=== PATIENT | male | born 1975 | race Caucasian/White ===

== ENCOUNTER 2020-07-07 11:58 | Emergency (ER) | payer BC ==
--- NOTE | 2020-07-07 12:32 | EDM.PDOC ---
ED HPI GENERAL MEDICAL PROBLEM - General Chief Complaint: Abdominal Pain Stated Complaint: ABD PAIN Time Seen by Provider: 07/07/20 12:32 Source of Information: Reports: Patient, RN Notes Reviewed History Limitations: Reports: No Limitations - History of Present Illness INITIAL COMMENTS - FREE TEXT/NARRATIVE: See hand written document completed during meditec downtime. - Related Data Allergies Allergy/AdvReac Type Severity Reaction Status Date / Time Sulfa (Sulfonamide Allergy Rash Verified 07/07/20 12:22 Antibiotics) Home Meds: Home Meds NK [No Known Home Meds] 07/07/20 [History] Past Medical History HEENT History: Reports: Impaired Vision - Past Surgical History GI Surgical History: Reports: Appendectomy Social & Family History - Tobacco Use Tobacco Use Status *Q: Never Tobacco User - Recreational Drug Use Recreational Drug Use: Yes Recreational Drug Type: Reports: Marijuana/Hashish Other Recreational Drug Type: last had 3 weeks ago ED ROS GENERAL - Review of Systems Review Of Systems: See Below Constitutional: Reports: No Symptoms Free Text/Narrative/Comment: See hand written document completed during meditec downtime. ED EXAM, GI/ABD - Physical Exam Exam: See Below Text/Narrative:: See hand written document completed during meditec downtime. Exam Limited By: No Limitations Course - Vital Signs Last Recorded V/S: Last Vital Signs Temp 38.3 C H 07/07/20 12:33 Pulse 64 07/07/20 15:16 Resp 16 07/07/20 12:33 BP 113/74 07/07/20 15:16 Pulse Ox 99 07/07/20 12:33 - Orders/Labs/Meds Orders: Active Orders 24 hr Category Date Time Status Abdomen Pelvis w Cont [CT] Stat Exams 07/07/20 12:40 Taken Sodium Chloride 0.9% [Normal Saline] 100 ml Med 07/07/20 15:30 Active IV ASDIRECTED Medication Orders Sodium Chloride (Normal Saline) 100 mls @ 3 mls/sec IV ASDIRECTED TOÑITO Last Admin: 07/07/20 15:44 Dose: 3 mls/sec Documented by: YAZAN Labs: Laboratory Tests 07/07/20 07/07/20 07/07/20 Range/Units 12:40 12:40 15:11 Lactic Acid 0.9 (0.4-2.0) mmol/L C-Reactive Protein 14.97 H (0.0-0.3) mg/dL Amylase 38 (25-115) U/L Lipase 90 (73-393) U/L Urine Color Yellow (YELLOW) Urine Appearance Clear (CLEAR) Urine pH 7.0 (5.0-8.0) Ur Specific [place] 1.015 (1.008-1.030) Urine Protein Negative (NEGATIVE) mg/dL Urine Glucose (UA) Negative (NEGATIVE) mg/dL Urine Ketones Trace H (NEGATIVE) mg/dL Urine Occult Blood Negative (NEGATIVE) Urine Nitrite Negative (NEGATIVE) Urine Bilirubin Negative (NEGATIVE) Urine Urobilinogen 0.2 (0.2-1.0) EU/dL Ur Leukocyte Esterase Negative (NEGATIVE) Urine RBC Not seen (0-5) Urine WBC Not seen (0-5) Ur Epithelial Cells Not seen Urine Bacteria Not seen Meds: Medications Generic Name Dose Route Start Last Admin Trade Name Freq PRN Reason Stop Dose Admin Sodium Chloride 100 mls @ 3 mls/sec 07/07/20 15:30 07/07/20 15:44 Normal Saline IV 3 mls/sec ASDIRECTED TOÑITO Administration Discontinued Medications Generic Name Dose Route Start Last Admin Trade Name Freq PRN Reason Stop Dose Admin Iopamidol 130 ml 07/07/20 12:50 07/07/20 15:44 Isovue-300 (61%) IV 07/07/20 12:51 130 ml ONETIME ONE Administration Sodium Chloride 10 ml 07/07/20 15:27 07/07/20 15:44 Saline Flush FLUSH 07/07/20 15:28 10 ml ONETIME ONE Administration - Radiology Interpretation Free Text/Narrative:: CT showed findings consistent with moderate acute diverticulitis involving the mid transverse colon without abscess or free air. Recommend follow up imaging after treatment to ensure complete resolution of the colonic wall thickening, without residual mucosal disease or mass. postoperative changes right lower quadrant consistent with appendectomy. Colonic diverticulitis. Departure - Departure Time of Disposition: 16:09 Disposition: Home, Self-Care 01 Clinical Impression: Abdominal pain, Diverticulitis - Discharge Information Instructions: Diverticulitis, [id number] Referrals: PCP,None [Primary Care Provider] - Forms: ED Department Discharge Additional Instructions: You have been diagnosed with diverticulitis as evidenced by CT scan of abdomen/pelvis with IV contrast. CT showed findings consistent with moderate acute diverticulitis involving the mid transverse colon without abscess or free air. Recommend follow up imaging after treatment to ensure complete resolution of the colonic wall thickening, without residul\al mucosal disease or mass. postoperative changes right lower quadrant consistent with appendectomy. Colonic diverticulitis. Lab work showed:AST 16ALT 23 CRP 14.97 Lactic acid 0.9 Bilirubin 3.3 Amylase 38 Lipase 90 Push waster, full liquid diet as tolerated to stay hydrated. Advance diet as tolerated, avoid dairy and complex carbohydrates until feeling better. Take acetaminophen 1000mg by mouth three times a day as needed for pain/fever. Take ciprofloxacin 500mg by mouth twice a day for 10 days for infection. Take metronidazole 500mg by mouth three times a day for 10 days for infection. Follow up with a primary provider in 3 to 7 days for recheck. Follow up with general surgeon Dr. Dexter in 7 to 10 days for recheck. Report to the emergency room if no improvement in 72 hours. Return for any worsening, issues or concerns. Sepsis Event Note (ED) - Focused Exam Vital Signs: Vital Signs Temp Pulse Resp BP Pulse Ox 07/07/20 15:16 64 113/74 07/07/20 12:33 38.3 C H 130 H 16 117/74 99 - My Orders Last 24 Hours: My Active Orders 07/07/20 12:40 Abdomen Pelvis w Cont [CT] Stat 07/07/20 15:30 Sodium Chloride 0.9% [Normal Saline] 100 ml IV ASDIRECTED - Assessment/Plan Last 24 Hours: My Active Orders 07/07/20 12:40 Abdomen Pelvis w Cont [CT] Stat 07/07/20 15:30 Sodium Chloride 0.9% [Normal Saline] 100 ml IV ASDIRECTED Assessment:: Abdominal pain Diverticulitis Plan: Push waster, full liquid diet as tolerated to stay hydrated. Advance diet as tolerated, avoid dairy and complex carbohydrates until feeling better. Take acetaminophen 1000mg by mouth three times a day as needed for pain/fever. Take ciprofloxacin 500mg by mouth twice a day for 10 days for infection. Take metronidazole 500mg by mouth three times a day for 10 days for infection. Follow up with a primary provider in 3 to 7 days for recheck. Follow up with general surgeon Dr. Dexter in 7 to 10 days for recheck. Report to the emergency room if no improvement in 72 hours. Return for any worsening, issues or concerns.
[2020-07-07] MEDS ORDERED: Iopamidol 612 MG/ML 500 ML Multipack Bottle IV ONE (12:50)
[2020-07-07] MEDS ORDERED: Ondansetron 4 MG/2 ML SDV ONE (12:52)
[2020-07-07] MEDS ORDERED: HYDROmorphone 0.5 MG/0.5 ML Syringe ONE ×2 (12:53→14:20)
[2020-07-07] MEDS ORDERED: Sodium Chloride 0.9% 10 ML Syringe FLUSH ONE (15:27)
[2020-07-07] MEDS ORDERED: Sodium Chloride 0.9% 100 ML IV SCH (15:30)
--- NOTE | 2020-07-09 14:34 | CRLCT ---
Final Report: ADDENDUM: Impression #2 should read as follows with change noted in CAPS: Postoperative changes right lower quadrant consistent with APPENDECTOMY. Dylan Olmstead M.D. Body/[employer] Radiologist [email or web address] 07/07/2020/ INDICATION: Abdominal pain TECHNIQUE: CT of the abdomen and pelvis performed after IV injection of 130 mL of Isovue- 370. FINDINGS: Minimal dependent atelectasis in the left lower lobe. Small sclerotic lesions involving the left proximal femur and pelvic bones with small lucencies involving both proximal femurs all likely benign. Surgical clips right lower quadrant consistent with prior appendectomy. Colonic diverticulosis. Segment of moderately prominent colonic wall thickening and luminal narrowing involving the mid transverse colon over a 6-7 cm length with small amounts of pericolonic fluid and moderate hazy inflammatory stranding in the pericolonic fat. Findings consistent with acute diverticulitis without abscess or free air. Followup CT would be helpful in ensuring that the transverse colon wall thickening over the affected segment completely resolves without residual mucosal disease or mass. Rarely a mildly perforated colonic mass can mimic diverticulitis. No free air or abscess. Remainder negative. IMPRESSION: 1. Findings consistent with moderate acute diverticulitis involving the mid transverse colon without abscess or free air. Recommend followup imaging after treatment to ensure complete resolution of the colonic wall thickening without residual mucosal disease or mass. 2. Postoperative changes right lower quadrant consistent with cholecystectomy. 3. Colonic diverticulosis. Please note that all CT scans at this facility use dose modulation, iterative reconstruction, and/or weight-based dosing when appropriate to reduce radiation dose to as low as reasonably achievable. Dictated by Dylan Olmstead MD @ Jul 07 2020 2:18PM Signed by: Dylan Olmstead @ 07/07/2020 2:18:20 PM (Electronic Signature) ----ADDENDUM---- Signed by: Dylan Olmstead MD @07/07/2020 3:48:45 PM (Electronic Signature) MANUEL
== END 2020-07-07 16:43 | disposition home or self-care (01) ==
LOC: JP.ED 11:58
DX: K57.32 Diverticulitis of large intestine without perforation or abscess without bleeding (principal); Z88.2 Allergy status to sulfonamides
CPT/HCPCS: 36415; 74177; 81001; 82150; 83605; 83690; 86140; 99284; J1170; J2405; Q9967; 99283